=== PATIENT | male | born 1995 | race Caucasian/White ===

== ENCOUNTER 2020-01-06 13:52 | Emergency (ER) | payer OTHER ==
[~2020-01-06] VITALS: Ht 172.7 cm; Wt 80.3 kg
[~2020-01-06 13:52] MED LIST: LIDOcaine 1% W/epiNEPHrine 1:100,000 20ml vial ONE
[2020-01-06] MEDS ORDERED: TETanus/Pertussis (Acell)/Diphther VAC/PF (Tdap-Adult) 0.5ml syringe IMVAC ONE (14:50)
[2020-01-06 17:01] VITALS: BP 124/63
== END 2020-01-06 16:48 | disposition home or self-care (01) ==
LOC: ER 13:53
DX: S61.411A Laceration without foreign body of right hand, initial encounter (principal); W31.1XXA Contact with metalworking machines, initial encounter; Y93.89 Activity, other specified; Y92.89 Other specified places as the place of occurrence of the external cause; Y99.9 Unspecified external cause status
CPT/HCPCS: 12002; 90471; 90715; 99283

== ENCOUNTER 2020-08-08 14:19 | Emergency (ER) | payer BC, OTHER ==
[~2020-08-08] VITALS: Ht 175.3 cm; Wt 86.4 kg
== END 2020-08-08 15:00 | disposition home or self-care (01) ==
LOC: ER 14:19
DX: Z13.89 Encounter for screening for other disorder (principal); R51.9 Headache, unspecified; R05 Cough
CPT/HCPCS: 99281

== ENCOUNTER 2020-08-09 09:19 | Emergency (ER) | payer BC ==
[~2020-08-09] VITALS: Ht 175.3 cm; Wt 84.1 kg
== END 2020-08-09 10:15 | disposition home or self-care (01) ==
LOC: ER 09:19
DX: Z20.828 Contact with and (suspected) exposure to other viral communicable diseases (principal)
CPT/HCPCS: 99281